=== PATIENT | male | born 1985 | race Caucasian/White ===

== ENCOUNTER 2021-12-23 17:53 | Emergency (ER) | payer OTHER, SELFPAY ==
[2021-12-23 18:00] VITALS: BP 154/85; PULSE 89; RESP 20; TEMP 37.2; O2SAT 96
--- NOTE | 2021-12-23 18:02 | ED.URI ---
HPI - URI/Sore Throat General Chief Complaint: Ear Stated Complaint: Sore Throat/Ear Pain Time Seen by Provider: 12/23/21 18:25 Source: patient and RN notes reviewed Mode of arrival: ambulatory Limitations: no limitations History of Present Illness HPI Narrative: 36-year-old male presents with concern for 2-day history of sore throat, ear pain, nasal congestion, rhinorrhea, cough, headache, body aches. Reports exposure to COVID. Reports has been taking Tylenol and ibuprofen. He denies drainage from the ears. Denies shortness of breath, nausea, vomiting, diarrhea. MD elicited complaint: cough and sore throat Related Data Allergies Allergy/AdvReac Type Severity Reaction Status Date / Time bacitracin Allergy Unknown Unknown Verified 12/23/21 18:31 [From Neosporin ([id number])] neomycin Allergy Unknown Unknown Verified 12/23/21 18:31 [From Neosporin ([id number])] polymyxin B Allergy Unknown Unknown Verified 12/23/21 18:31 [From Neosporin ([id number])] acetaminophen [From Percocet] AdvReac Mild Nausea and Verified 12/23/21 18:31 Vomiting oxycodone [From Percocet] AdvReac Mild Nausea and Verified 12/23/21 18:31 Vomiting Review of Systems Review of Systems: CONSTITUTIONAL: Reports malaise, chills, sweats EYES: Denies visual changes, redness, or discharge. ENT: Reports rhinorrhea, congestion, otalgia and sore throat. CARDIOVASCULAR: Denies chest pain, palpitations, or edema. RESPIRATORY: Reports cough. Denies dyspnea. GASTROINTESTINAL: Denies abdominal pain, nausea, vomiting, diarrhea SKIN: Denies rash or itching. MUSCULOSKELETAL: Reports myalgia. NEUROLOGIC: Reports headache. All systems reviewed & are unremarkable except as noted in HPI and below PMFSH Comments At time of signature, agree with nursing past medical, surgical, social and family history. There is no relevant family history pertinent to the presenting complaint Exam Narrative: GENERAL: Nontoxic-appearing and in no acute distress. HEAD: Normocephalic EYES: PERRLA, conjunctivae clear ENT: Nares clear, turbinates edematous and erythematous, clear discharge. Mucous membranes moist. TM pearly olguin with sharp light reflex bilaterally; no tragal tenderness. Oropharynx not erythematous without lesions. Tonsils not enlarged and without exudate, no drooling, no hoarseness, no trismus, uvula midline. NECK: Supple. No lymphadenopathy CHEST: Clear to auscultation, breath sounds equal. No wheezing, rhonchi, rales, or stridor. No respiratory distress, speaks in full sentences. HEART: Regular rate and rhythm. No murmur heard. SKIN: Warm, dry, no rash. NEURO: Alert and oriented x3. PSYCH: Normal mood and affect Course Course Emergency Course: Patient is aware of diagnosis, understands and agrees to treatment plan. Anticipatory guidance given. Patient agrees to follow-up as directed and is aware of reasons to seek care at the emergency department. Portions of this record may have been created with voice recognition software Level of Care: Express Care Visit Vital Signs Vital signs: Reviewed. MDM - URI/Sore Throat MDM Narrative Medical decision making narrative: Differential diagnosis considered: Castillo virus, strep pharyngitis, allergic rhinitis, upper respiratory tract infection, sinusitis, rhinosinusitis, nasopharyngitis. viral pharyngitis, otitis media, otitis externa, pneumonia, bronchitis, viral cough syndrome, viral syndrome, and influenza. Exam findings show no acute concerns or changes; patient is non-toxic appearing and is in no distress. Patient is appropriate for outpatient treatment and follow-up. Lab Data Attestation: I reviewed the patient's lab results. Critical Care Time Critical Care Time Critical Care Time: No Discharge Plan Discharge Clinical Impression: Acute viral syndrome, Close exposure to COVID-19 virus Patient Disposition: Home, Self-Care Condition: Stable Instructions: Viral Syn
[2021-12-23 20:04] LABS: SARS-CoV-2 RNA PCR Positive
== END 2021-12-23 18:35 | disposition home or self-care (01) ==
PROVIDERS: Emergency Provider Nurse Practitioner; PCP Nurse Practitioner Family
DX: U07.1 COVID-19 (principal); I10 Essential (primary) hypertension; K21.9 Gastro-esophageal reflux disease without esophagitis; F41.9 Anxiety disorder, unspecified; F32.A Depression, unspecified
CPT/HCPCS: 87426; 99213; C9803; G0463; U0003; U0005

== ENCOUNTER 2023-12-21 19:44 | Emergency (ER) | payer OTHER, SELFPAY ==
[2023-12-21 19:44] VITALS: BP 188/104; PULSE 82; RESP 18; TEMP 37.4; O2SAT 100
--- NOTE | 2023-12-21 19:56 | ED.GENADULT ---
HPI - General Adult General Chief complaint: Ear Stated complaint: Achy History of Present Illness HPI narrative: 38-year-old male presenting with ear pain. Patient says been having URI symptoms for last 3 days. The symptoms include ear pain loss of hearing sore throat congestion. He has been taking Claritin, pseudoephedrine and other medications to try to improve his symptoms but they're not improving. He denies fevers chills nausea vomiting or diarrhea. No chest pain difficulty breathing or abdominal pain. Related Data Home Medications Medication Instructions Recorded Confirmed bupropion HCl 150 mg 24 hr tablet, 1 tablet PO DAILY 12/23/21 12/21/23 extended release citalopram 10 mg tablet 1 tablet PO DAILY 12/23/21 12/21/23 [id number]-[id number] 120 mg/mL 120 mg subcut MONTHLY 12/23/21 12/21/23 subcutaneous pen injector (Emgality Pen) hydrochlorothiazide 12.5 mg capsule 1 cap PO DAILY 12/23/21 12/21/23 lisinopril 20 mg tablet 1 tablet PO DAILY 12/23/21 12/21/23 omeprazole 40 mg capsule,delayed 1 cap PO DAILY 12/23/21 12/21/23 release rizatriptan 10 mg tablet 1 tablet PO DAILY PRN Migraine 12/23/21 12/21/23 Headache topiramate 100 mg tablet 1 tablet PO DAILY 12/23/21 12/21/23 Allergies Allergy/AdvReac Type Severity Reaction Status Date / Time bacitracin Allergy Unknown Unknown Verified 12/21/23 19:56 [From Neosporin ([id number])] neomycin Allergy Unknown Unknown Verified 12/21/23 19:56 [From Neosporin ([id number])] polymyxin B Allergy Unknown Unknown Verified 12/21/23 19:56 [From Neosporin ([id number])] acetaminophen [From Percocet] AdvReac Mild Nausea and Verified 12/21/23 19:56 Vomiting oxycodone [From Percocet] AdvReac Mild Nausea and Verified 12/21/23 19:56 Vomiting Exam Narrative: APPEARANCE: No apparent distress. Head: Left TM is erythematous and bulging, right TM is normal, no erythema posterior oropharynx EYES: EOMI, NOSE: Atraumatic NECK: Trachea midline RESPIRATORY: No increased rate of breathing, clear to auscultation CARDIOVASCULAR: RRR, ABDOMINAL: Non-distended, soft nontender MUSCULOSKELETAl: No obvious deformities NEURO: Alert. Moving 4/4 extremities SKIN:: Warm, dry. Normal color PSYCHIATRIC: Normal affect Medical Decision Making MDM Narrative Medical decision making narrative: -Course: 38-year-old presenting with URI symptoms. Patient has left acute otitis media. Patient be treated Augmentin given Tylenol for fevers. 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[employer], lives with his -Interventions: Augmentin, Tylenol dexamethasone -Shared decision making / Disposition: Discharged -RX Augmentin, Tylenol Discharge Plan Discharge Clinical Impression: Acute otitis media Patient Disposition: Home, Self-Care Condition: Stable Instructions: Antibiotic Form, Ear Infection (AC) Prescriptions: New acetaminophen 500 mg tablet 1,000 mg PO TID PRN (Reason: judi) 7 Days Qty: 42 0RF amoxicillin-pot clavulanate 875-125 mg tablet 1 tablet PO Q12H Qty: 20 0RF No Action promethazine-DM 6.25-15 mg/5 mL syrup 5 ml PO Q4-6H PRN (Reason: cough) Qty: 120 0RF omeprazole 40 mg capsule,delayed release(DR/EC) 1 cap PO DAILY Emgality Pen 120 mg/mL pen injector 120 mg SUBCUT MONTHLY rizatriptan 10 mg tablet 1 tablet PO DAILY PRN (Reason: Migraine Headache) topiramate 100 mg tablet 1 tablet PO DAILY bupropion HCl 150 mg tablet extended release 24 hr 1 tablet PO DAILY lisinopril 20 mg tablet 1 tablet PO DAILY hydrochlorothiazide 12.5 mg capsule 1 cap PO DAILY citalopram 10 mg tablet 1 tablet PO DAILY Follow-up/Referrals: Jake Nichols
[2023-12-21] MEDS: dexAMETHasone SOD PHOS INJ 10 MG/ML 1 ML VIAL PO (20:17)
[2023-12-21] MEDS: ACETAMINOPHEN 500 MG TABLET 1000 MG PO (20:18)
[2023-12-21] MEDS: AMOXICILLIN/CLAVULANATE K 875-125 MG TAB 1 TABLET PO (20:18)
[2023-12-21 20:25] VITALS: BP 170/100
== END 2023-12-21 20:25 | disposition home or self-care (01) ==
PROVIDERS: Emergency Provider Emergency Medicine; PCP Nurse Practitioner Family
DX: H66.92 Otitis media, unspecified, left ear (principal); Z79.899 Other long term (current) drug therapy
CPT/HCPCS: 99283; A9270; J1100